=== PATIENT | male | born 2000 ===

== ENCOUNTER 2020-01-21 10:38 | Emergency (ER) | payer MEDICAID, OTHER ==
[~2020-01-21] VITALS: Ht 170.2 cm; Wt 86.0 kg
[2020-01-21] MEDS ORDERED: PredniSONE 20 MG TABLET PO ONE (11:30)
[2020-01-21] MEDS ORDERED: ALBUTEROL SULFATE HFA 90 MCG/PUFF 8 GM INHALER IH ONE (11:30)
[2020-01-21] MEDS ORDERED: ACETAMINOPHEN 500 MG TABLET PO ONE (11:30)
[2020-01-21 12:23] LABS: COVID AG,FIA SOURCE NASOPHARYNGEAL
[2020-01-21 13:28] VITALS: BP 134/74
== END 2020-01-21 14:03 | disposition home or self-care (01) ==
LOC: EMS 10:43
DX: J45.909 Unspecified asthma, uncomplicated (principal); Z20.828 Contact with and (suspected) exposure to other viral communicable diseases; F17.210 Nicotine dependence, cigarettes, uncomplicated
CPT/HCPCS: 71045; 87426; 99284; 94640; J7512; U0003; J3535